=== PATIENT | male | born 1995 ===

== ENCOUNTER → 2022-11-10 12:39 | Outpatient (CLI) | payer OTHER, SELFPAY ==
--- NOTE | 2022-11-10 12:46 | DI.RAD.S_ITS ---
PROCEDURE: XR ELBOW LT MIN 3V INDICATIONS: fracture of left radial head TECHNIQUE: 3 views of the elbow were acquired. COMPARISON: None. FINDINGS: Bones: No fractures or dislocations. No suspicious bony lesions. Soft tissues: No elbow joint effusion. No suspicious soft tissue calcifications. IMPRESSION: No acute osseous abnormality. If clinical symptoms persist or clinical suspicion for pathology is high, a repeat examination in 7-10 days, or advanced imaging such as CT or MRI is suggested for further evaluation. Dictated by: Jonathan Santoyo M.D. on 11/10/2022 at 15:44 Approved by: Jonathan Santoyo M.D. on 11/10/2022 at 15:46
--- NOTE | 2022-11-10 12:46 | DI.RAD.S_ITS ---
PROCEDURE: XR FOOT LT 2V INDICATIONS: fracture of left third toe TECHNIQUE: 2 views of the foot were acquired. COMPARISON: None. FINDINGS: Bones: No acute displaced fracture identified. Soft tissues: No tibiotalar joint effusion. IMPRESSION: No acute displaced fracture identified. If symptoms persist, follow-up radiographs and/or CT or MRI may be helpful for further evaluation. Dictated by: Calin Garcia M.D. on 11/10/2022 at 16:32 Approved by: Calin Garcia M.D. on 11/10/2022 at 16:35
--- NOTE | 2022-11-10 12:46 | DI.RAD.S_ITS ---
PROCEDURE: XR HAND RT 2V INDICATIONS: fracture of fifth metacarpal TECHNIQUE: 2 views of the hand(s) acquired. COMPARISON: None. FINDINGS: Bones: Possible 5th metacarpal neck fracture of uncertain chronicity. No dislocations. Carpal bones are normally aligned. No suspicious bony lesions. Soft tissues: No suspicious soft tissue calcifications. IMPRESSION: Possible 5th metacarpal neck fracture. Recommend correlation with focal pain and tenderness. Consider follow-up imaging in 7-10 days. Dictated by: Jonathan Santoyo M.D. on 11/10/2022 at 15:42 Approved by: Jonathan Santoyo M.D. on 11/10/2022 at 15:43
== END ==
PROVIDERS: Referring Provider Chiropractor; Visit Provider Chiropractor
DX: S52.125A Nondisplaced fracture of head of left radius, initial encounter for closed fracture (principal); S62.306A Unspecified fracture of fifth metacarpal bone, right hand, initial encounter for closed fracture; S92.502A Displaced unspecified fracture of left lesser toe(s), initial encounter for closed fracture
CPT/HCPCS: 73080; 73120; 73620